=== PATIENT | female | born 1995 | race Caucasian/White ===

== ENCOUNTER 2023-01-06 10:22 | Outpatient (AMB) | payer OTHER, SELFPAY ==
--- NOTE | 2023-01-06 10:35 | A.OFFVIS_ITS ---
Intake Vital Signs 01/06/23 10:36 Height 5 ft 3 in Weight 122 lb BMI 21.6 BP 124/68 Blood Pressure Location Lt brachial Position Sitting Respiration 14 Pulse 60 Pulse Source Pulse Oximeter Pulse Oximetry (%) 99 Oxygen Delivery Method Room Air Intake Visit Reasons: cervical facet/myofascial pain syndrome Allergies Sulfa (Sulfonamide Antibiotics) Adverse Reaction (Severe, Verified 01/06/23 10:38) rash Medication List - Last Reconciled 01/06/23 by Deonna Hernadez LPN famotidine 10 mg PO DAILY pantoprazole 40 mg PO DAILY HPI cervical facet/myofascial pain syndrome HPI Details 27-year-old female who presents today to the office for a new patient evaluation of cervical facet and myofascial pain syndrome. The patient was referred by Dr. Morley. She reports neck pain that started in June 2020 and was associated with being diagnosed with Lyme disease, for which she took a 28-day course of doxycycline. Her Lyme was treated, but she continued to have pain in her neck and her head. She has pain in the right side of the neck, periscapular area, periorbital area, and frontal area of the face. She also has headaches and ophthalmalgia associated with neck pain. She rates her pain at 6/10 on average on the back side of her head and neck and bilateral trapezius, 6/10 in her forehead area, and 5/10 in her shoulder region. In the middle of the day, the pain tends to be worse and rates at 8/10 in intensity. Movements make it worse. It is generally better when she is resting. It is described as constant and worse with prolonged computer use and better with movement and rest. She did obtain a home cervical traction device with minimal benefits. 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 She used to play soccer in the past. She denies any injury or accidents in the past. She has had 12 sessions of physical therapy, six sessions of chiropractor manipulation, five sessions of massage therapy, and six sessions of acupuncture, and none of them provided any relief. [facility] Medical History (Updated 01/10/23 @ 15:22 by Je Deleon MD) Cervical myofascial pain syndrome Cervical facet joint syndrome Review of Systems Const All systems reviewed & are unremarkable except as noted in HPI and below Physical Exam Vital Signs: Last Vital Signs Pulse 60 10/13/23 10:36 Resp 14 01/06/23 10:36 BP 124/68 01/06/23 10:36 Pulse Ox 99 01/06/23 10:36 Oxygen Delivery Method Room Air 01/06/23 10:36 BMI result Body Mass Index 21.6 General: Appears afebrile. Alert and oriented. Mood and affect appropriate. Follows and participates in conversation appropriately. Respiratory effort is unlabored. Able to transition from sit to stand unassisted. Ambulates with bilaterally normal heel strike and toe off. Office Procedures Injection Trigger Point Multi Pre-procedure diagnosis: Myofascial pain Post-procedure diagnosis: Myofascial pain Site and number of trigger points: Five points in each of the sternocleidomastoid muscles Solution: Total volume administered 10 ml (bupivacaine 0.25%). The procedure, its benefits, and its risks were explained to the patient and all questions were answered. A pulse oximeter monitor was attached and the patient was monitored throughout the procedure. Prior to the start of the procedure, a ?time out? was performed to confirm correct patient, procedure, and laterality. Trigger points were identified by manual palpation and marked. The skin was cleaned with Chloraprep. A 1.5 inch 25 G needle was used. Ultrasound guidance was utilized to ensure that the needle stayed within the muscle, away from the underlying vascular structures. The needle was advanced in out of plane approach using ultrasound guidance into the muscle. Approximately 0.5 ml to 1 ml of injectate was delivered to each trigger point. This process was repeated at each trigger point site. The patient tolerated the procedure well, without complication. The patient denied any numbness, paresthesias, or weakness. Post-procedure vitals were recorded as part of the nursing discharge note in electronic medical record. Following a period of observation, the patient was discharged in stable condition with written discharge instructions. Trigger Point Multiple: - Trigger point injection =/>3 Results Reviewed Results Reviewed: Cervical MRI : 2020 There is a small central annular tier within at the inferior margin of the disc at C5-6 level with some discussion model disc height loss. Assessment & Plan Assessment & Plan (1) Cervical myofascial pain syndrome: Code(s): M79.18 - Myalgia, other site Plan Patient is status post trigger point injections to bilateral SCM under ultrasound guidance today in the clinic. Patient tolerated procedure well and was discharged home in stable condition with discharge instructions. All questions were answered. For cervical degenerative disc disease, I recommended trying posture modification, utilizing a good pillow for side sleeping support, and avoiding non ergonomic positioning of the neck and back at home or work. If trigger point injections are not helpful for her symptoms, we can consider a cervical epidural steroid injection in the future. We will follow-up in four weeks via telephone or in clinic to assess response to therapy. A follow-up appointment was made during today's visit. Scribed for Dr. Deleon by Aryan Sweeney, medical chemist, on 01/06/2023. I, Dr. Deleon, have personally reviewed and agree with the information entered by the scribe. Coding Level of Care Code New Pt Level 4 (25415) Diagnoses Cervical myofascial pain syndrome M79.18 CPT Codes Details - Trigger Point Multiple: 81412- Trigger point injection =/>3 ([id number])
[2023-01-06 10:36] VITALS: BP 124/68; PULSE 60; RESP 14; O2SAT 99; BMI 21.6
== END 2023-01-06 11:26 | disposition home or self-care (01) ==
PROVIDERS: PCP Physical Medicine & Rehabilitation; Visit Provider Internal Medicine
DX: M79.18 Myalgia, other site (principal)
CPT/HCPCS: 20553; 99203

== ENCOUNTER → 2023-01-06 10:22 | Outpatient (BNVA) | payer OTHER, SELFPAY | PROVIDERS: PCP Physical Medicine & Rehabilitation; Visit Provider Internal Medicine | DX: M79.18 Myalgia, other site (principal) | CPT/HCPCS: 20553 ==